=== PATIENT | female | born 1950 | race Hispanic/Latino ===

== ENCOUNTER → 2019-03-21 | Day surgery (SDC) | payer MEDICARE ==
[2019-03-07 16:55] LABS: BASOPHILS % 0.4 % (0.0-1.0); EOSINOPHILS # (AUTO) 0.2 (0.0-0.4); HEMATOCRIT 32.3 % (34.2-44.1); HEMOGLOBIN 10.3 g/dL (12.0-16.0); LYMPHOCYTES # (AUTO) 2.6 (1.0-3.2); LYMPHOCYTES % 30.9 % (18.0-39.1); MEAN CORPUSCULAR HEMOGLOBIN 28.9 pg (28-32); MEAN CORPUSCULAR HGB CONC 31.9 g/dL (31-35); MEAN CORPUSCULAR VOLUME 90.5 fL (81-99); MONOCYTES # (AUTO) 0.8 (0.2-0.8); MONOCYTES % 8.9 % (4.4-11.3); NEUTROPHILS # (AUTO) 4.8 (2.1-6.9); NEUTROPHILS % 57.2 % (38.7-80.0); PLATELET COUNT 148 x10e3/uL (140-360); RED BLOOD COUNT 3.57 x10e6/uL (3.6-5.1); RED CELL DISTRIBUTION WIDTH 14.3 % (11.7-14.4)
[~2019-03-21] MED LIST: B COMPLEX1 EACH PO; BENICAR20 MG PO; BIOTIN1 MG PO; CRESTOR10 MG PO; D3 PO; FENTANYL CITRATE/PF 100MCG/2 ML INJ ONE; GABAPENTIN300 MG PO; LISINOPRIL2.5 MG PO; MAGNESIUM OXID400 MG PO; METFORMIN HCL500 MG PO; MIDAZOLAM HCL 2 MG/2 ML VIAL ONE; OMEPRAZOLE40 MG PO; ONDANSETRON HCL INJ 2MG/ML 2ML 2 MG/ML VIAL ONE; OR PHACO EYE KIT ONE; PIOGLITAZONE HC45 MG PO; PREOP PHACO EYE KIT ONE; PROMETHAZINE HCL (IM) 25 MG/ML VIAL ONE; REGLAN5 MG PO; TRESIBA SC; TRULICITY SC; VASCEPA PO
--- OUTSIDE RECORDS SUMMARY | 2019-03-21 08:07 | XMS REPORT ---
Author Author [facility] Address Unknown Phone Unavailable Care Team Providers Care Adult Manager Name Role Phone Unavailable Unavailable Payers Payer Name Policy Type Policy Number Effective Date Expiration Date Problems This patient has no known problems. Allergies, Adverse Reactions, Alerts Allergy Name Allergy Type Status Severity Reaction(s) Onset Date Inactive Date Treating Clinician Comments No Known Allergies DA Active U 2011-08-11 00:00:00 Medications This patient has no known medications. Encounters Start Date/Time End Date/Time Encounter Type Admission Type Attending [facility] Facility Care Department Encounter ID 2018-12-06 13:52:00 2018-12-06 13:52:00 Outpatient [id number] Results Test Description Test Time Test Comments Text Results Atomic Results Result Comments STOMACH 2018-09-06 15:32:00 RUN DATE: 09/06/18 [place] PAGE 1 RUN TIME: 1532 Specimen Inquiry RUN USER: INTERFACE PATIENT: DEMETRIUS NGUYEN LOC: [facility] U #: [id number] AGE/SX: 67/F ROOM: RE09/02/18REG DR: Siri Jean-Baptiste MD : 46 BED: DIS: STATUS: [facility] TLOC: SPEC #: [id number] RECD: 09/02/18 STATUS: JOSSUE [facility] #: [id number] RUSTAM: 09/02/18- [facility] DR: Siri Jean-Baptiste MD ENTERED: 09/02/18 SP TYPE: STOMACH OTHR DR: Beni Jefferson MD ORDERED: GROSS COPIES TO: Beni Jefferson MD [id number] [id number] Siri Jean-Baptiste MD [address] [place] [address] PROCEDURES: GROSS (09/05/18-1428) TISSUES: 1. DUODENUM, NOS - POLYP 2. ANTRAL BIOPSY - H-PYLORI 3. GASTRIC CORPUS - POLYP CLINICAL HISTORY COLLECTION DATE: 09/02/18 GASTROPARESIS FINAL DIAGNOSIS Duodenal polyp, biopsy: DUODENAL TYPE MUCOSA CONTAINING ECTOPIC BODY/FUNDIC TYPE GASTRIC MUCOSAL ELEMENTS WITH PARIETAL CELLS NEGATIVE FOR MALIGNANCY Antrum and body, biopsy: REACTIVE GASTROPATHY WITH MILD CHRONIC INFLAMMATION NO INTESTINAL METAPLASIA SEEN NEGATIVE FOR HELICOBACTER PYLORI NEGATIVE FOR MALIGNANCY Gastric polyp, biopsy: BODY/FUNDIC TYPE GASTRIC MUCOSA, NO PATHOLOGIC ALTERATION CLINCAL CORRELATION RECOMMENDED CONTINUED ON NEXT PAGE RUN DATE: 09/06/18 [facility] PAGE 2 RUN TIME: 1531 Specimen Inquiry RUN USER: INTERFACE SPEC #: [id number] PATIENT: DEMETRIUS NGUYEN #[id number] (Continued) FINAL DIAGNOSIS (Continued) [facility]/ D (5) [id number], [id number] MACROSCOPIC The first specimen is received in formalin, labeled with the patient's name, identified as "duodenal polyp", and consists of pink biopsy tissue measuring 0.25 cm in aggregate, submitted as (1). The second specimen is received in formalin, labeled with the patient's name, identified as "antrum and body", and consists of two pink- mejia biopsy tissue measuring 0.3 cm in aggregate, submitted as (2) for H E and Giemsa stains. The third specimen is received in formalin, labeled with the patient's name, identified as "gastric polyp", and consists of a single pink biopsy tissue measuring 0.25 cm, submitted as (3). GROSS PERFORMED AT [facility] [address] [place] [address] (p)[phone] MICROSCOPIC MICROSCOPIC PERFORMED AT [facility] All of the stains, including any controls performed, stain appropriately. [facility] [address] [place] [address] (p)[phone] PERFORMING SITE Diagnosis performed at: [facility] [address] [place] [phone] CONTINUED ON NEXT PAGE RUN DATE: 09/06/18 [facility] PAGE 3 RUN TIME: 1531 Specimen Inquiry RUN USER: INTERFACE SPEC #: [id number] PATIENT: DEMETRIUS NGUYENLLO #[id number] (Continued) Signed SIGNATURE ON FILE Keira Coffman 09/06/18 1532 END OF REPORT BASIC METABOLIC PANEL 2018-09-02 11:46:00 SODIUM (test code=NA) 140 mmol/L 136-145 POTASSIUM (test code=K) 4.7 mmol/L 3.5-5.1 CHLORIDE (test code=CL) 105.0 mmol/L 98-107 CARBON DIOXIDE (test code=CO2) 28.0 mmol/L 21-32 ANION GAP (test code=GAP) 11.7 10-20 GLUCOSE (test code=GLU) 120 mg/dL 74-106 BLOOD UREA NITROGEN (test code=BUN) 11 mg/dL 7-18 GLOMERULAR FILTRATION RATE (test code=GFR) > 60 mL/min >=60 Estimated GFR by using Modified MDRD formula.Chronic kidney disease is defined as either kidney damageor GFR <60 mL/min/1.73 m2 for >3 months. CREATININE (test code=CREAT) 0.70 mg/dL 0.55-1.02 Note change in reference range due to change in reagent. BUN/CREATININE RATIO (test code=BUN/CREA) 15.8 10-20 CALCIUM (test code=CA) 8.9 mg/dL 8.5-10.1 BASIC METABOLIC [id number] 11:32:00* Test Item Value Reference Range Comments SODIUM (test code=NA) 140 mmol/L 136-145 POTASSIUM (test code=K) 4.7 mmol/L 3.5-5.1 CHLORIDE (test code=CL) 105.0 mmol/L 98-107 CARBON DIOXIDE (test code=CO2) mmol/L 21-32 ANION GAP (test code=GAP) 10-20 GLUCOSE (test code=GLU) mg/dL 74-106 BLOOD UREA NITROGEN (test code=BUN) mg/dL 7-18 GLOMERULAR FILTRATION RATE (test code=GFR) mL/min >=60 CREATININE (test code=CREAT) mg/dL 0.55-1.02 BUN/CREATININE RATIO (test code=BUN/CREA) 10-20 CALCIUM (test code=CA) mg/dL 8.5-10.1 SCR MAMM BILATERAL MATILDA CAD [id number] 09:33:50 - SCR MAMM BILATERAL MATILDA CAD DIGITALBILATERAL DIGITAL SCREENING MAMMOGRAM 3D/2D WITH CAD: 07/06/2018CLINICAL: Asymptomatic. Digital breast tomosynthesis was performed in addition to routine CC and MLO views. Current mammographic images were evaluated by either a [employer] DTS M-Vu or a [employer] CAD (computer aided detection system). Comparison is made to exams dated 05/29/2011 mammogram, 05/12/2010 mammogram, and 04/24/2008 mammogram - [facility]. The tissue of both breasts is predominantly fatty. There are benign calcifications and vascular calcification in both breasts. No suspicious mass, architectural distortion, malignant type calcification, or lymph node abnormality detected. Breast architecture is stable compared to prior exams.IMPRESSION: BENIGNThere is no mammographic evidence of malignancy. Resume annual screening mammography in one year. Jagdeep Pisano M.D. rb/:07/06/2018 09:33:50 Imaging Technol ogist: Pamela ADAM, [facility] sent: BIRADS 1-2 Nor mal Mammogram BI-RADS: 2 Benign
[2019-03-21 11:30] VITALS: BP 115/52
== END | disposition home or self-care (01) ==
LOC: OR 08:04
PROVIDERS: ATTEND Ophthalmology
DX: H25.12 Age-related nuclear cataract, left eye (principal); I10 Essential (primary) hypertension; E78.5 Hyperlipidemia, unspecified; E11.9 Type 2 diabetes mellitus without complications; K58.9 Irritable bowel syndrome, unspecified; I45.10 Unspecified right bundle-branch block; Z01.812 Encounter for preprocedural laboratory examination; Z79.84 Long term (current) use of oral hypoglycemic drugs; Z79.4 Long term (current) use of insulin
CPT/HCPCS: 36415 ×2; 66984; 82948; 85025; J2250; J2405; J2550; J3010; V2632

== ENCOUNTER → 2019-04-04 | Day surgery (SDC) | payer MEDICARE ==
[~2019-04-04] MED LIST changes: -ONDANSETRON HCL INJ 2MG/ML 2ML 2 MG/ML VIAL ONE; -PROMETHAZINE HCL (IM) 25 MG/ML VIAL ONE
[2019-04-04 14:40] VITALS: BP 123/59
== END | disposition home or self-care (01) ==
LOC: OR 10:30
PROVIDERS: ATTEND Ophthalmology
DX: H25.11 Age-related nuclear cataract, right eye (principal); I10 Essential (primary) hypertension; D64.9 Anemia, unspecified; E11.9 Type 2 diabetes mellitus without complications; Z79.84 Long term (current) use of oral hypoglycemic drugs
CPT/HCPCS: 36415; 66984; 82948; J2250; J3010; V2632